=== PATIENT | male | born 1970 | race Caucasian/White ===

== ENCOUNTER 2017-09-17 10:02 | Emergency (ER) | payer OTHER ==
[2017-09-17 10:11] VITALS: RESP 16; TEMP 97.7
[2017-09-17] MEDS ORDERED: NS 500 ML IV ONE (10:11)
[2017-09-17 10:22] LABS: PLATELET COUNT 234 10^3/uL (150-400)
--- NOTE | 2017-09-17 10:37 | EDPHY ---
H & P Smoking Status: Never smoked Time Seen by Provider: 09/17/17 10:07 HPI/ROS: HPI Fainted. 47-year-old male by ambulance from work. He works as a laborer [employer]. He was walking around the laboratory where he works. 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 He reports that he started feeling lightheaded and suddenly lost consciousness and fell to the ground. He reports that he has lost a considerable amount of weight over the last several months. He thinks he became dehydrated. He struck the left side of his under chin as well as left lateral brow ridge. He complains of a dull headache. No neck pain. Prior to this syncopal event he had no chest pain, no palpitations, no shortness of breath, no headache. He denies any loss of sensation or weakness in his extremities. No extremity pain. No other complaint. ROS: Constitutional: No fever, no chills. No weakness. Eyes: No discharge. No changes in vision. ENT: No sore throat. No nasal congestion or rhinorrhea. Respiratory: No cough. No shortness of breath. Cardiac: No chest pain, no palpitations. Gastrointestinal: No abdominal pain, no vomiting, no diarrhea. Genitourinary: No hematuria. No dysuria or increased frequency with urination. Musculoskeletal: No back pain. No neck pain. As above. Skin: No rashes. Facial lacerations as above. Neurological: As above. No focal weakness or altered sensation. Past medical history: Bradycardia, neurogenic syncopal episodes. Last episode at least several years ago. Social history: Nonsmoker. No alcohol. Here with coworkers. Physical Exam: General Appearance: Alert, no distress. This patient is responding to questions appropriately and in full sentences. This patient appears well- hydrated and well-nourished. Head: Normocephalic atraumatic. Face: Facial bones are stable on palpation. He does have a 1 cm laceration, left lateral brow ridge and a 3 cm elliptical submental laceration. Eyes: Pupils equal and round and reactive to light, no pallor or injection. No lid erythema or edema. ENT, Mouth: Mucous membranes moist. Dentition is intact. No malocclusion of the jaw. No tongue lacerations or abrasions. Pharynx is clear. The bilateral nasal canals are clear. No septal hematoma. Respiratory: There are no retractions, lungs are clear to auscultation with good air movement bilaterally. Chest wall is stable to AP and lateral palpation. Cardiovascular: Regular rate and rhythm. No murmur. Gastrointestinal: Abdomen is soft and nontender, no masses, bowel sounds normal. Neurological: Motor sensory function is intact. Cranial nerves are normal. Cerebellar function intact. Skin: Warm and dry, no rashes. No lacerations, abrasions or contusions. Musculoskeletal: Neck is supple and nontender. The trachea is midline. No midline cervical, thoracic, lumbar or sacral tenderness on palpation. No flank tenderness on palpation. Extremities are symmetrical, full range of motion. All joints in the bilateral upper and bilateral lower extremities range without pain or impingement. No tenderness on palpation of the long bones in the bilateral upper and bilateral lower extremities. Psychiatric: No agitation. No depression. Database: EKG: EKG time is 10:08 a.m.; EKG shows a narrow complex normal sinus rhythm with a ventricular rate of 56. 1st degree AV block noted. The QRS, QT intervals are within normal limits. There are no ST-T wave changes indicative of ischemic or injury pattern. No evidence of right heart strain. No evidence of WPW, Brugada syndrome, hypertrophic cardiomyopathy noted. Interpreted by me. Imaging: CT head without contrast: Negative for acute intracranial pathology. No evidence of skull fracture, facial or mandibular fracture. Results were discussed with staff radiologist Dr. Jas Cho. Procedures: Emergency department course: IV placed. He was placed on a cafeteria server. Vital signs reviewed. EKG obtained and reviewed by myself. He was started on IV normal saline with 500 cc to 1 L to be given over the next 1 hr. Secondary to nature of fall as well as head trauma will obtain a head CT evaluate for facial fractures well as traumatic brain injury. Patient consents. 12:40 p.m., patient re-evaluated. Sitting upright in bed working on his phone. Vital signs reviewed and are normal. I discussed the results of all of his diagnostic testing. Wound care has been performed beautifully by our physician geriatric nurse assistant Jodi Fuentes. Please see her notes for further details. The patient is requesting discharge. I did discuss observation admission. He tells me that this has happened to him in the past and he feels comfortable going home. He declines admission. In my professional opinion he does understand the risks to his health by declining admission. I discussed follow-up. I discussed keeping him well hydrated. Return to emergency department precautions were reviewed. All of his questions were answered. He was discharged in good condition. Differential Diagnosis: The differential diagnosis on this patient includes but is not limited to vasovagal syncope, neurogenic syncope. Arrhythmia, pulmonary embolism, acute coronary syndrome, CVA, subarachnoid hemorrhage unlikely. This represents a partial list of diagnoses considered. These considerations are based on history , physical exam, past history, reassessment and diagnostic testing. (Juan Carlos Lassiter) Constitutional: Initial Vital Signs Temperature (C) 36.5 C 09/17/17 10:10 Heart Rate 49 L 09/17/17 10:10 Respiratory Rate 16 09/17/17 10:10 Blood Pressure 114/79 09/17/17 10:10 O2 Sat (%) 97 09/17/17 10:10 O2 Delivery Mode Room Air Allergies/Adverse Reactions: No Known Allergies Allergy (Unverified 09/17/17 10:11) Medical Decision Making - Diagnostics Imaging Results: Imaging Impressions Head CT 09/17/17 10:31 Impression: 1. Normal CT brain without contrast. 2. Mild sinusitis. 3. No skull fracture. Findings and recommendations discussed with Emergency Department physician, Dr. Juan Carlos Lassiter at 1104 hours on September 17, 2017. Final report concurs with initial preliminary interpretation. Procedures: I was asked by Dr. Juan Carlos Lassiter to repair facial lacerations. Laceration repair #1. Verbal consent was obtained from the patient. The 1 cm laceration on the left upper eyelid was anesthetized using 1% lidocaine with epinephrine. The wound was irrigated with saline, draped and explored to its base with a gloved finger. There were no deep structures involved. The wound was repaired with 6 0 Prolene, 6 sutures. The wound repair was simple. The procedure was performed by myself. Laceration repair #2. Verbal consent was obtained from the patient. The 3 cm flap laceration on the chin was anesthetized using 1% lidocaine with epinephrine. The wound was irrigated with saline, draped and explored to its base with a gloved finger. There were no deep structures involved. The wound was repaired with 6 0 Prolene , 6 sutures. The wound repair was simple. The procedure was performed by myself. (Jodi Noble) - Data Points Laboratory Results: Laboratory Results 09/17/17 10:00 09/17/17 10:00 09/17/17 09/17/17 10:00 10:00 WBC 7.75 10^3/uL 10^3/uL (3.80-9.50) RBC 4.88 10^6/uL 10^6/uL (4.40-6.38) Hgb 15.2 g/dL g/dL (13.7-17.5) Hct 42.9 % % (40.0-51.0) MCV 87.9 fL fL (81.5-99.8) MCH 31.1 pg pg (27.9-34.1) MCHC 35.4 g/dL g/dL (32.4-36.7) RDW 11.9 % % (11.5-15.2) Plt Count 234 10^3/uL 10^3/uL (150-400) MPV 8.9 fL fL (8.7-11.7) Neut % (Auto) 67.0 % % (39.3-74.2) Lymph % (Auto) 25.4 % % (15.0-45.0) Isabella % (Auto) 4.4 % L % (4.5-13.0) Eos % (Auto) 2.3 % % (0.6-7.6) Baso % (Auto) 0.5 % % (0.3-1.7) Nucleat RBC Rel Count 0.0 % % (0.0-0.2) Absolute Neuts (auto) 5.19 10^3/uL 10^3/uL (1.70-6.50) Absolute Lymphs (auto) 1.97 10^3/uL 10^3/uL (1.00-3.00) Absolute Monos (auto) 0.34 10^3/uL 10^3/uL (0.30-0.80) Absolute Eos (auto) 0.18 10^3/uL 10^3/uL (0.03-0.40) Absolute Basos (auto) 0.04 10^3/uL 10^3/uL (0.02-0.10) Absolute Nucleated RBC 0.00 10^3/uL 10^3/uL (0-0.01) Immature Gran % 0.4 % % (0.0-1.1) Immature Gran # 0.03 10^3/uL 10^3/uL (0.00-0.10) Sodium 147 mEq/L H mEq/L (135-145) Potassium 4.3 mEq/L mEq/L (3.5-5.2) Chloride 104 mEq/L mEq/L (97-110) Carbon Dioxide 27 mEq/l mEq/l (22-31) Anion Gap 16 mEq/L mEq/L (8-16) BUN 20 mg/dL mg/dL (7-23) Creatinine 1.0 mg/dL mg/dL (0.7-1.3) Estimated GFR > 60 Glucose 113 mg/dL H mg/dL (70-100) Calcium 9.7 mg/dL mg/dL (8.5-10.4) Troponin I < 0.012 ng/mL ng/mL (0.000-0.034) Medications Given: Discontinued Medications Sodium Chloride (Ns) 500 mls @ 1,000 mls/hr IV EDNOW ONE PRN Reason: Protocol Stop: 09/17/17 10:40 Last Admin: 09/17/17 10:24 Dose: 500 mls Departure - Departure Disposition: Home, Routine, Self-Care Clinical Impression: Syncope, Face lacerations Condition: Good Instructions: Syncope (ED), Facial Laceration (ED) Additional Instructions: Wound Care Follow-Up: Removal of sutures in 7 days. Suture removal is complimentary in uncomplicated cases. Infection or abnormal findings would require reevaluation by the MD. In that case, you may be billed. Read and follow provided instructions. Follow-up with your primary care physician in 1-2 days for re-evaluation. Keep well hydrated. Drink plenty of fluids. No strenuous activity until you have been cleared by her primary care physician. Return to the emergency department for lightheadedness, chest pain, palpitations , shortness of breath or other serious concerns. Referrals: Patient,NotPresent [Unknown] - As per Instructions
[2017-09-17 13:03] VITALS: BP 130/81; PULSE 61; O2SAT 94
--- NOTE | 2017-09-18 11:41 | CPEKG ---
Heart Rate: 56 RR Interval: 1071 P-R Interval: 272 QRSD Interval: 100 QT Interval: 444 QTC Interval: 429 P [place]: 48 QRS [place]: 40 T Wave [place]: 9 EKG Severity - ABNORMAL ECG - EKG Impression: SINUS RHYTHM EKG Impression: FIRST DEGREE AV BLOCK Electronically Signed By: Phillip East 22-Sep-2017 09:39:07
== END 2017-09-17 13:02 | disposition home or self-care (01) ==
PROC: 0HQ1XZZ Repair Face Skin, External Approach (ICD-10-PCS; principal; 2017-09-17)
DX: S01.112A Laceration without foreign body of left eyelid and periocular area, initial encounter (principal); R55 Syncope and collapse; E86.9 Volume depletion, unspecified; W19.XXXA Unspecified fall, initial encounter; Y92.69 Other specified industrial and construction area as the place of occurrence of the external cause; Y99.8 Other external cause status; Y93.01 Activity, walking, marching and hiking